=== PATIENT | female | born 1940 | race Caucasian/White ===

== ENCOUNTER → 2016-09-02 | Outpatient (CLI) | payer OTHER ==
[2016-09-02 16:56] LABS: BASOPHILS % (AUTO) 1.6 % (0-1); EOSINOPHILS # (AUTO) 0.61 10*3/UL; HEMATOCRIT 49.1 % (37.0-47.0); HEMOGLOBIN 16.8 g/dL (12.0-16.0); LYMPHOCYTES # (AUTO) 1.98 10*3/uL; MEAN CORPUSCULAR HEMOGLOBIN 28.8 PG (27-31); MEAN CORPUSCULAR HGB CONC 34.2 g/dL (33-37); MEAN CORPUSCULAR VOLUME 84.1 FL (81-99); MEAN PLATELET VOLUME 10.6 FL (7.4-12.2); MONOCYTES # (AUTO) 0.73 10*3/UL (0.3-0.8); NEUTROPHILS # (AUTO) 2.67 10*3/UL; NEUTROPHILS % (AUTO) 43.7 % (50-80); RED BLOOD COUNT 5.84 10^6/uL (4.20-5.40)
[2016-09-02 17:01] LABS: BUN/CREATININE RATIO 18.88 (6-20); CALCIUM 9.2 mg/dL (8.7-10.7); SERUM ALBUMIN 4.1 g/dL (3.5-4.8)
[2016-09-02 17:39] LABS: PLATELET MORPHOLOGY COMMENT NORMAL MORPHOLOGY (NORM); RBC MORPHOLOGY COMMENT NORMAL MORPHOLOGY (NORM); WBC MORPHOLOGY COMMENT NORMAL MORPHOLOGY (NORM)
== END ==
LOC: MOB LAB 15:54
PROVIDERS: ATTEND Nurse Practitioner
DX: J18.9 Pneumonia, unspecified organism (principal); R05 Cough; R06.02 Shortness of breath
CPT/HCPCS: 36415; 80053; 83880; 85025; 99214; G0463

== ENCOUNTER → 2016-09-23 | Outpatient (CLI) | payer OTHER | LOC: MMPC 11:11 | PROVIDERS: ATTEND Internal Medicine | DX: M81.0 Age-related osteoporosis without current pathological fracture (principal) | CPT/HCPCS: G0463; J0897 ==

== ENCOUNTER → 2016-12-29 | Outpatient (CLI) | payer OTHER | LOC: MMPC 11:11 | PROVIDERS: ATTEND Internal Medicine | DX: I62.9 Nontraumatic intracranial hemorrhage, unspecified (principal); E78.5 Hyperlipidemia, unspecified; I10 Essential (primary) hypertension | CPT/HCPCS: 99214; G0463 ==

== ENCOUNTER → 2017-01-17 | Outpatient (CLI) | payer OTHER ==
[2017-01-17 12:11] LABS: BUN/CREATININE RATIO 19.09 (6-20); CALCIUM 9.5 mg/dL (8.7-10.7); SERUM ALBUMIN 3.6 g/dL (3.5-4.8)
--- NOTE | 2017-01-17 15:53 | DI ---
History: Cerebral hemorrhage. History breast carcinoma Comparison: No previous MRI studies for comparison Findings: Right posterior temporal region there is a roughly 2.9 x 2.2 x 1.5 cm well delineated area of heterog eneous hyperintensity. There is no appreciable surrounding edema or mass effect. Post contrast images demonstrate no enhancement of this lesion indicating focal hemorrhage as opposed to neoplasm. There are mild atrophic and mild small vessel ischemic changes, consistent with the patient's age. Th ere is no midline shift. Paramesencephalic cisterns are patent. There are no extra-axial fluid collections. There are no destructive osseous changes. The mastoid cells are well aerated Postcontrast images demonstrate no [place] enhancing lesions Impression Heterogeneous nonenhancing lesion in the right posterior temporal region without associated edema or mass effect. The lack of postcontrast enhancement indicates hemorrhage as opposed to neoplasm. Follow up MRI in 3 months is recommended for reevaluation
--- NOTE | 2017-01-17 16:51 | DI ---
History: Congestive heart failure Comparison: No previous chest films available for comparison Findings: Cardiac silhouette is within normal in size. There is mild aortic atherosclerosis Pulmonary vasculature is normal There is no focal infiltrate. There is no pleural effusion. Impression No acute pulmonary disease.
== END ==
LOC: MOB LAB 10:33
PROVIDERS: ATTEND Internal Medicine
DX: I50.42 Chronic combined systolic (congestive) and diastolic (congestive) heart failure (principal); R60.0 Localized edema; I25.10 Atherosclerotic heart disease of native coronary artery without angina pectoris; I61.9 Nontraumatic intracerebral hemorrhage, unspecified; M81.0 Age-related osteoporosis without current pathological fracture; Z95.5 Presence of coronary angioplasty implant and graft; Z86.79 Personal history of other diseases of the circulatory system
CPT/HCPCS: 36415; 70553; 71020; 80053; 83880

== ENCOUNTER 2017-02-01 16:43 | Inpatient (IN) ==
[2017-02-01] MEDS ORDERED: NORMAL SALINE 10 ML SYRINGE FLUSH IVP PRN (16:59)
[2017-02-01] MEDS ORDERED: FUROSEMIDE 10 MG/1 ML - 2 ML VIAL IV ONE (16:59)
[2017-02-01] MEDS ORDERED: LIDOCAINE W/ SODIUM BICARB 0.5 ML SYR SUBD PRN (16:59)
[2017-02-01] MEDS ORDERED: ACETAMINOPHEN 325 MG TABLET PO PRN (16:59)
--- NOTE | 2017-02-01 17:23 | EKG ---
[address] [address] Measurements Intervals [place] Rate: 86 P: 37 [place]: 222 QRS: -15 QRSD: 154 T: 129 QT: 408 QTc: 451 Interpretive Statements SINUS RHYTHM WITH FIRST DEGREE AV BLOCK LEFT BUNDLE BRANCH BLOCK [120+ ms QRS DURATION, 80+ ms Q/S IN V1/V2, 85+ ms R IN I/aVL/V5/V6] No previous ECG available for comparison Electronically Signed On 02-02-17 08:32:47 MDT by Simone Posdaa MD [email or web address]
[2017-02-01] MEDS ORDERED: HYDROXYZINE HCL PO PRN (17:34)
[2017-02-01 20:10] LABS: Hemoglobin [HGB] 16.3 g/dL (12.0-16.0); MEAN CORPUSCULAR HEMOGLOBIN 29.5 PG (27-31); MEAN CORPUSCULAR HGB CONC 34.7 g/dL (33-37); MEAN CORPUSCULAR VOLUME 85.1 FL (81-99); MEAN PLATELET VOLUME 10.3 FL (7.4-12.2); MONOCYTES % (AUTO) 12.6 % (5-15); NEUTROPHILS % (AUTO) 46.8 % (50-80); RED BLOOD COUNT 5.52 10^6/uL (4.20-5.40)
[2017-02-01 20:11] LABS: BASOPHILS # (AUTO) 0.09 10*3/UL; BASOPHILS % (AUTO) 1.8 % (0-1); EOSINOPHILS # (AUTO) 0.08 10*3/UL; EOSINOPHILS % (AUTO) 1.6 % (0-8); LYMPHOCYTES # (AUTO) 1.88 10*3/uL; MONOCYTES # (AUTO) 0.64 10*3/UL (0.3-0.8); NEUTROPHILS # (AUTO) 2.37 10*3/UL; PLATELET MORPHOLOGY COMMENT NORMAL MORPHOLOGY (NORM); RBC MORPHOLOGY COMMENT NORMAL MORPHOLOGY (NORM); WBC MORPHOLOGY COMMENT NORMAL MORPHOLOGY (NORM)
[2017-02-01 20:12] LABS: BLOOD UREA NITROGEN 21 mg/dL (7-22); BUN/CREATININE RATIO 19.09 (6-20)
[2017-02-01 20:13] LABS: SERUM ALBUMIN 3.9 g/dL (3.5-4.8)
[2017-02-01] MEDS ORDERED: NORMAL SALINE 10 ML SYRINGE FLUSH IV PRN (20:32)
[2017-02-01] MEDS ORDERED: Lidocaine 1% 10 MG/ML - 20 ML VIAL SUBCUT PRN (20:32)
[2017-02-01] MEDS ORDERED: HEPARIN 500 UNIT/5 ML SYRINGE FOR CENTRAL LINE IVP PRN (20:32)
[2017-02-01] MEDS ORDERED: LIDOCAINE 2% 20 MG/ML - 20 ML VIAL SUBCUT PRN (20:32)
[2017-02-01] MEDS ORDERED: POTASSIUM CHLORIDE 20 MEQ TAB PO SCH (21:00)
[2017-02-01] MEDS: Rosuvastatin Tab 20 MG TAB PO SCH (21:27)
[2017-02-01] MEDS: LOSARTAN 50 MG TABLET PO SCH (21:27)
[2017-02-01] MEDS: Metoprolol TARTRATE Tab 25 MG TAB PO SCH (21:27)
--- NOTE | 2017-02-01 21:35 | PDOC ---
History and Physical - History of Present Illness Date and Time of Service: 02/01/2017, 2034 Chief Complaint: Weakness History of Present Illness: This is a very pleasant 76-year-old that has had a rough course as of late including an intracranial hemorrhage related to Xarelto for history of DVT, chronic left ankle pain after an ankle fracture and repair, hypertension, and congestive heart failure, who presented to her primary care provider, Dr. Trotter, today, with a complaint of feeling weaker. She also has gained weight. The patient's problems really of been persistent and worsening since her head bleed and about mid December of this year. Her and she states that she's been feeling short of breath for the last couple of months. He states that she's been getting weaker the last couple of months. Patient's not had symptoms like this before but has noticed that she's had increased leg swelling and edema, and despite increases in Lasix the patient was not able to tolerate the subsequent increased doses of potassium as well. It is not clear if she was truly compliant with that Lasix therapy, but she again presented to the clinic with worsening weakness and shortness of breath. She denies chest pain, fevers, but complains of chills. Nothing done to this point has made the patient feel better, she's not really clear on what's making her feel worse in terms of exacerbating factors. I'm not clear as to whether she's had any stress testing done in the past and she has never had any coronary artery disease problems. We have had trouble getting initial laboratory data here, and were very alondra to obtain IV access, so we may have to wait until tomorrow when we can get a PICC line to assess further with labs. Initial EKG showed an AV block with left bundle branch block which appears to be chronic. Past Medical History Medical History: 1. Coronary artery disease stent placement in 2013. 2. GERD. 3. Hypertension. 4. Colonic adenoma. 5. Hypothyroidism. 6. Left- sided breast cancer. 7. Postoperative DVT, had been on Xarelto, but stopped after bleed. 8. Recent bleed in brain presumably related to Xarelto therapy. 9. Congestive heart failure, recently diagnosed. 10. 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 Cholecystectomy. 2. Colonoscopy. 3. Left breast surgery. 4. Partial hysterectomy according to the patient. 5. Coronary stent 2. 6. Left ankle surgery after fracture Pertinent Family History: Significant for breast cancer. Past Social History: Patient does not smoke or drink. for over 60 years , has 4 children. Retired. Lives in [place], [place]. Tobacco Use: Never Smoker Substance Use Type: None Alcohol Use: None Medication / Allergies Home Medications: Home Medications Medication Instructions Recorded Confirmed Type Loratadine [Claritin Tab] 1 tab PO DAILY tab 05/16/14 02/24/16 History Calcium Carbonate [Calcium] 2 tab PO QD #60 tab 05/27/15 02/24/16 History Vit D3/Folic Acid/B2/B6/B12 1 each PO QD #30 tab 05/27/15 02/24/16 Clinic [Folgard Tablet] Betamethasone/Propylene Glyc 15 gm TOPICAL BID PRN #1 tube 08/07/15 02/24/16 Clinic [Diprolene Af 0.05% Cream] Denosumab [Prolia] 1 ml SUBCUT every 6 months #0 ml 08/19/15 02/24/16 Clinic Hydroxyzine HCl 0.5 - 1 tab PO QID PRN #30 tab 12/18/15 02/24/16 Clinic Levothyroxine Sodium [Synthroid] 1 tab PO DAILY #90 tab 08/12/16 02/01/17 Clinic Metoprolol Tartrate 1 tab PO BID #180 tab 08/12/16 Clinic Tramadol HCl 1 - 2 tab PO Q4H PRN #100 tab 08/12/16 Clinic Pantoprazole Sodium [Protonix] 1 tab PO DAILY #90 tab 11/02/16 Clinic Losartan Potassium 1 tab PO BID #180 tab 12/29/16 Clinic Rosuvastatin Calcium 1 tab PO QPM #30 tab 12/29/16 Clinic Ondansetron [Ondansetron Odt] 1 tab PO QID PRN #20 tab 01/13/17 Clinic Zolpidem Tartrate 1 tab PO QHS PRN #30 tab 01/13/17 Clinic Furosemide 1 tab PO BID #60 tab 01/17/17 Clinic Potassium Chloride [Klor-Con M20] 1 tab PO BID #60 tab 01/17/17 Clinic Allergies/Adverse Reactions: Allergies Allergy/AdvReac Type Severity Reaction Status Date / Time adhesive Allergy blisters Verified 02/01/17 18:27 ciprofloxacin Allergy ITCHING Verified 02/01/17 18:27 Latex, Natural Rubber Allergy NOT Verified 02/01/17 18:27 APPLICABLE Penicillins Allergy nausea, Verified 02/01/17 18:27 vomiting, rash lubiprostone [From Amitiza] AdvReac Severe confusion Verified 02/01/17 18:27 Review of Systems - Review of Systems All Systems: Reviewed & No Additional Complaints Except as Stated (I did a 12 point review systems and it was negative other than that discussed with the history of present illness and that noted below.) - Constitutional Constitutional: REPORTS: Fever/Chills (Has had chills, no fevers), Weakness ( Worsening over the past 2 months) - Respiratory Respiratory: DENIES: Dyspnea At Rest, Dyspnea with Exertion - Cardiovascular Cardiovascular: DENIES: Negative System Review - Gastrointestinal Gastrointestinal / Abdominal: DENIES: Negative System Review - Genitourinary Genitourinary: REPORTS: Other (Had recent urinary tract infection that was treated, and feels that she's had worsening odor to her urine, and it's been much more cloudy. She is worried she could have a recurrent urinary tract infection.) - Musculoskeletal Musculoskeletal: REPORTS: Other (Left ankle pain, chronic since fracture.) - Neurological Neurologic: REPORTS: Headache (Has chronic migraines since age 15, and notably had migraine headache 4 days prior to her bleed in her brain per her history.) Exam - Vitals Vital Signs: Vital Signs Temperature 98.2 F Temperature Source Temporal Artery Scan Pulse Rate [Pulse Oximeter] 107 Respiratory Rate 18 Blood Pressure [Left Arm] 124/67 Pulse Ox 95 Oxygen Delivery Method Room Air Height 5 ft 2 in Weight 212 lb 12.8 oz - General General Appearance: POSITIVE: No Acute Distress, Cooperative, Obese - Head Head Exam: POSITIVE: Normal Inspection, Normocephalic, Atraumatic - Eye Eye Exam: POSITIVE: No Scleral Icterus - ENT ENT Exam: POSITIVE: Mucous Membranes Moist - Neck Neck Exam: POSITIVE: Normal Inspection, No Tenderness, No Thyromegaly - Respiratory Respiratory Exam: POSITIVE: Clear to Auscultation - Bilaterally, Breathing Non Labored, Normal to Percussion and Palpation - Cardiovascular Cardiovascular Exam: POSITIVE: RRR, No Murmur, No Clicks, No Gallops, No Rubs, No JVD - GI/Abdominal GI/Abdominal Exam: POSITIVE: Normal Bowel Sounds, Non Tender, Non Distended, Soft - Rectal Rectal Exam: POSITIVE: Deferred - External Exam: POSITIVE: Deferred Exam: POSITIVE: Deferred - Extremities Extremities Exam: POSITIVE: No Clubbing Present, No Edema Present, No Cyanosis Present Additional Extremities Exam Details: Scarring on left ankle bilaterally from surgery. There may be trace edema, but it is certainly not pitting edema in the lower extremities at this point. - Back Back Exam: POSITIVE: Normal Inspection, No CVA Tenderness - Neurological Neurological Exam: POSITIVE: Alert, Oriented x 3 (The patient admits to some word finding problems at times, but overall no she is in the hospital, no she is here because of weakness, and appears to be oriented to time.), No Facial Droop, Speech Intact / Clear, Moves All Extremities Equally - Psychiatric Psychiatric Exam: POSITIVE: Normal Affect, Normal Mood - Integumentary Integumentary Exam: POSITIVE: Normal Color, Warm, Dry, Intact - Central Line Examination Central Line Present on Admission: No Results - Labs Labs - Last 24 Hours: I have ordered a CMP, CBC with differential, a brain natruretic peptide, BMP, and they are all pending at this time. - EKG Data -: EKG Interpreted by Me EKG Shows Normal: Sinus Rhythm - EKG Data EKG Interpretation: Other (First-degree AV block with left bundle branch block, I think the left bundle branch block is chronic) Assessment and Plan - Patient Problems (1) Congestive heart failure Current Visit: Yes Status: Acute Qualifiers: Congestive heart failure type: unspecified congestive heart failure type Congestive heart failure chronicity: acute Qualified Description: Acute congestive heart failure, unspecified congestive heart failure type Qualifier Code(s): (I50.9) Heart failure, unspecified (2) Weakness Current Visit: Yes Status: Acute (3) Coronary artery disease Current Visit: Yes Status: Chronic Qualifiers: Coronary Disease-Associated Artery/Lesion type: [place] coronary artery [place] vs. transplanted heart: [place] heart Associated angina: without angina pectoris Qualifier Code(s): (I25.10) Atherosclerotic heart disease of [place] coronary artery without angina pectoris (4) History of DVT (deep vein thrombosis) Current Visit: Yes Status: Chronic (5) History of breast cancer Current Visit: Yes Status: Resolved (6) Hypercholesterolemia Current Visit: Yes Status: Chronic (7) Hypertension Current Visit: Yes Status: Chronic Qualifiers: Hypertension type: essential hypertension Qualifier Code(s): (I10) Essential (primary) hypertension (8) Hypothyroidism Current Visit: Yes Status: Chronic Qualifiers: Hypothyroidism type: acquired Qualified Description: Acquired hypothyroidism Qualifier Code(s): (E03.9) Hypothyroidism, unspecified (9) History of cerebral hemorrhage Current Visit: Yes Status: Chronic - Assessment / Plan Additional Assessment/Plan Details: Admit the patient. Try to get the labs as we can, but may need PICC line first for better vascular access as the patient is a very hard IV stick. She apparently has had central lines and [place], [place], presumably for the same problem. Get records on brain bleed from [facility]. I did review the MRI scan recently done here in January, and it showed that there was a bleed that likely was resolving, but no evidence of mass or cancer. Start diuresis, but monitor electrolytes as well. Get echocardiogram. PT and OT. Get an x-ray of the left ankle, read through orthopedic progress notes in 2015 and the patient had a plan of having an MRI scan of the ankle but that was not done that I can tell and there was never any follow-up thereafter. I wonder about hardware pain. Overall this could be congestive heart failure but could certainly be pulmonary hypertension or some other issue causing some of the patient's fatigue and shortness of breath, notably however the patient does not markedly short of breath or dyspneic, fatigue and weakness seemed to be her main complaints. We' ll continue to evaluate for etiologies that could explain this presentation. Patient is full code. I did discuss CODE STATUS with the patient and her . Patient and her agree with the plan. Addendum entered and electronically signed by ABA PRECIADO 02/01/17 20:50: Patient is very hard of hearing but is resistant to using her hearing aids.
[2017-02-01] MEDS: Potassium Chloride Tab 10 MEQ TAB PO SCH (22:48)
[2017-02-01] MEDS: Zolpidem Tab 5 MG TAB PO PRN (22:51)
[2017-02-01] MEDS: traMADol 50 MG TABLET PO PRN (22:51)
[2017-02-02 04:53] LABS: BASOPHILS # (AUTO) 0.03 10*3/UL; BASOPHILS % (AUTO) 0.6 % (0-1); EOSINOPHILS # (AUTO) 0.09 10*3/UL; EOSINOPHILS % (AUTO) 1.8 % (0-8); Hematocrit [HCT] 45.5 % (37.0-47.0); Hemoglobin [HGB] 15.7 g/dL (12.0-16.0); MEAN CORPUSCULAR HEMOGLOBIN 29.4 PG (27-31); MEAN CORPUSCULAR HGB CONC 34.5 g/dL (33-37); MEAN CORPUSCULAR VOLUME 85.2 FL (81-99); MEAN PLATELET VOLUME 10.6 FL (7.4-12.2); MONOCYTES # (AUTO) 0.61 10*3/UL (0.3-0.8); MONOCYTES % (AUTO) 12.1 % (5-15); NEUTROPHILS # (AUTO) 2.49 10*3/UL; NEUTROPHILS % (AUTO) 49.5 % (50-80); RED BLOOD COUNT 5.34 10^6/uL (4.20-5.40)
[2017-02-02 05:00] LABS: PLATELET MORPHOLOGY COMMENT NORMAL MORPHOLOGY (NORM); RBC MORPHOLOGY COMMENT NORMAL MORPHOLOGY (NORM); WBC MORPHOLOGY COMMENT NORMAL MORPHOLOGY (NORM)
[2017-02-02 05:03] LABS: SERUM ALBUMIN 3.5 g/dL (3.5-4.8)
[2017-02-02] MEDS: LEVOTHYROXINE 50 MCG TABLET PO SCH (05:08)
[2017-02-02] MEDS ORDERED: Potassium Chloride Tab 10 MEQ TAB PO SCH ×2 (07:00)
[2017-02-02] MEDS: Metoprolol TARTRATE Tab 25 MG TAB PO SCH ×2 (08:51→20:29)
[2017-02-02] MEDS: ENOXAPARIN SODIUM 30 MG/0.3 ML SYRINGE SUBCUT SCH (08:51)
[2017-02-02] MEDS: CALCIUM CARBONATE 500 MG (TUMS) CHEWABLE TABLET PO SCH (08:51)
[2017-02-02] MEDS: LOSARTAN 50 MG TABLET PO SCH ×2 (08:51→20:30)
[2017-02-02] MEDS: PANTOPRAZOLE 40 MG TABLET PO SCH (08:51)
[2017-02-02] MEDS: Potassium Chloride Tab 10 MEQ TAB PO SCH ×2 (08:56→18:05)
[2017-02-02] MEDS ORDERED: ENOXAPARIN SODIUM 30 MG/0.3 ML SYRINGE SUBCUT SCH (09:00)
--- NOTE | 2017-02-02 10:03 | DI ---
LEFT ANKLE, 02/02/2017 7:00 AM: Clinical History: Left ankle pain. Previous Exam: 10/08/2014. 3 views are submitted. The patient apparently is wearing a sock and the elastic band over the ankle r egion is quite "tight". The patient is status post ORIF of fractures of the medial malleolus and the distal fibula. Both fracture sites have healed with anatomic alignment and position. There is an oste ochondral defect on the medial aspect of the dome of the talus. Readin. Status post ORIF of fractures of the medial malleolus and the distal fibula and both fractures gallagher ve healed. 2. There is an osteochondral defect on the medial aspect of the dome of the talus. 3. The patient's sock is quite tight in the region of the ankle and may be functioning as a tourniqu et.
[2017-02-02] MEDS ORDERED: FUROSEMIDE 10 MG/1 ML - 10 ML IVP ONE (11:21)
[2017-02-02] MEDS ORDERED: POTASSIUM CHLORIDE 20 MEQ TAB PO ONE (11:22)
[2017-02-02] MEDS: traMADol 50 MG TABLET PO PRN ×3 (14:20→22:20)
[2017-02-02] MEDS ORDERED: Potassium Chloride Tab 10 MEQ TAB PO ONE (14:30)
--- NOTE | 2017-02-02 14:37 | DI ---
INSERTION OF PICC LINE, 02/02/2017 8:00 AM: Clinical History: CHF. The patient has no peripheral IV access. Technique: A "time out" session was performed to verify the patient's name and date of prior to obtaining informed signed consent prior for this procedure. The left arm was prepped with ChloraPrep with Tint. Venipuncture was achieved under sterile conditions as already described in the ultrasound report. A 4 [place] double lumen Bard Power Picc Solo PICC catheter was inserted for a distance of th e length of the catheter. The guidewire could easily be advanced to its full length. Approximately 1 mL aliquots of 1% lidocaine was injected multiple times in order to relieve potential venospasm. A to elaina of 5 mL of 1% lidocaine was injected without ability to advance a catheter. Injection was then pe rformed with Isovue 300. The total volume injected was 8 mL. These images show that there is a 5 CM l ength of spasm beginning at the tip of the introducer catheter. Then there is an additional 5 CM wher e the vein is dilated followed by a second length of spasm. This vein was in the location of the brac hial vein but was distant from the brachial artery. This probably is a collateral channel. The final film with contrast shows that it is leading up to the subclavian vein and is not part of the axillary vein. Further attempts at advancing the catheter were unsuccessful. It was proposed to the patient t hat we attempt the procedure on the opposite arm but she declined because she complained of extensive pain from this PICC line procedure. Supervisor Boat Outfitting: Viet Funk MD Bulk Plant Supervisor: None. Complications/Medications: None. Reading: Unsuccessful introduction of a PICC line catheter probably secondary to a combination of venous spasm and a small caliber vein. Prior to the procedure, the estimated diameter of this vein without dilata tion was between 3-4 mm. The patient declined an attempt at cannulating a vein in the right arm.
--- NOTE | 2017-02-02 17:01 | DI ---
ULTRASOUND GUIDED VENOUS ACCESS, 02/02/2017 8:00 AM Clinical History: CHF. The patient has poor peripheral IV access. Previous Exam: None at this facility. 2D ultrasound was used to identify the left upper arm vein in proximity to the brachial vein for veno us access to place a PICC line. The puncture site was prepped with ChloraPrep with Tint and draped in the usual sterile fashion. This vein was successfully cannulated using realtime ultrasound guidance. The introducer sheath was advanced and positioned without difficulty. The guidewire could be introdu misti easily, but a 4 [place] PICC catheter could not be advanced more than 1-2 cm beyond the length of the introducer sheath. One mL aliquots of 1% lidocaine were injected through the introducer and order ed to relieve any potential venospasm. Although the guidewire could easily be introduced and withdraw n without any difficulty, the catheter could not be withdrawn. Isovue-300 was then injected through t he introducer sheath 3 different times with a total volume of 5 mL of contrast. These films show spas m immediately distal to the catheter tip and further up the arm. The vessel that was cannulated does not correspond to the brachial or basilic vein and probably represents a collateral vein that has dil ated and eventually will drain into the subclavian vein. The cannulated vein at the beginning of the procedure measured about 3-4 mm in diameter. Reading: Successful and uncomplicated cannulation of a collateral vein adjacent to the location of the brachia l vein. However, due to profound venospasm, the 4 [place] catheter could not be advanced. The patient declined to have a second attempt performed via the right arm.
--- NOTE | 2017-02-02 18:10 | PDOC(PROG) ---
Date and Time of Service: 02/02/2017, 1810 Interval History: No chest pain and no shortness breath. Still feels weak. Initially felt energetic during the morning, but has felt weaker through the day. Echocardiogram is done and is pending. No nausea or vomiting. She definitely feels like she's got some fluid weight off. Objective : Data - Labs CBC and BMP: 02/02/17 04:38 02/02/17 04:38 Labs - Last 24 Hours: Laboratory Results 02/01/17 02/02/17 Range/Units 19:08 04:38 WBC 5.06 5.03 (4.8-10.8) 10^3/uL RBC 5.52 H 5.34 (4.20-5.40) 10^6/uL Hgb 16.3 H 15.7 (12.0-16.0) g/dL Hct 47.0 45.5 (37.0-47.0) % MCV 85.1 85.2 (81-99) FL MCH 29.5 29.4 (27-31) PG MCHC 34.7 34.5 (33-37) g/dL RDW Std Deviation 43.8 43.9 (39-50) fL RDW Coeff of Maureen 14.2 14.2 (11.5-14.5) % Plt Count 231 213 (140-350) 10*3/uL MPV 10.3 10.6 (7.4-12.2) FL Immature Gran % (Auto) 0 0.2 (0-5) % Neut % (Auto) 46.8 L 49.5 L (50-80) % Lymph % (Auto) 37.2 35.8 (10-50) % [place] % (Auto) 12.6 12.1 (5-15) % Eos % (Auto) 1.6 1.8 (0-8) % Baso % (Auto) 1.8 H 0.6 (0-1) % Immature Gran # (Auto) 0 0.01 10*3/UL Neut # (Auto) 2.37 2.49 10*3/UL Lymph # (Auto) 1.88 1.80 10*3/uL [place] # (Auto) 0.64 0.61 (0.3-0.8) 10*3/UL Eos # (Auto) 0.08 0.09 10*3/UL Baso # (Auto) 0.09 0.03 10*3/UL WBC Morphology Comment Normal morphology Normal morphology (NORM) Plt Morphology Comment Normal morphology Normal morphology (NORM) RBC Morph Comment Normal morphology Normal morphology (NORM) PT 10.3 (9.7-11.4) secs INR 0.97 (0.00-5.90) N/A Sodium 139 139 (135-145) meq/L Potassium 3.7 L 3.6 L (3.8-5.2) meq/L Chloride 104 104 (98-112) meq/L Carbon Dioxide 24 23 (23-33) meq/L Anion Gap 11 12 (5-20) BUN 21 25 H (7-22) mg/dL Creatinine 1.1 1.0 (0.50-1.20) mg/dL Estimated GFR Metal Inspector BUN/Creatinine Ratio 19.09 25.00 H (6-20) Glucose 101 112 H (78-110) mg/dL Calculated Osmolality 290.0 292.0 (267-292) mOsm/kg Calcium 10.1 9.9 (8.7-10.7) mg/dL Magnesium 2.0 (1.6-2.4) mg/dL Total Bilirubin 0.9 1.0 (0.3-1.2) mg/dL AST 37 36 (8-39) IU/L ALT 55 H 52 (9-52) IU/L Alkaline Phosphatase 81 74 (38-126) IU/L Troponin I 0.013 (< 0.040) ng/mL NT-Pro-B Natriuret Pep 378 (0-450) PG/ML Total Protein 6.6 5.7 L (6.1-8.0) g/dL Albumin 3.9 3.5 (3.5-4.8) g/dL Globulin 2.7 2.2 L (2.50-4.10) g/dL Albumin/Globulin Ratio 1.40 1.50 (1.3-2.0) mg/g Objective : Exam - General General Appearance: No Acute Distress, Cooperative, Obese Additional General Exam Details: Vital Signs - Last Taken Temperature 97.2 F 02/02/17 17:00 Pulse Rate 107 H 02/02/17 17:00 Respiratory Rate 18 02/02/17 17:00 Blood Pressure 110/78 02/02/17 17:00 Pulse Ox 91 02/02/17 17:00 - Eye Eye Exam: No Scleral Icterus - ENT ENT Exam: Mucous Membranes Moist - Respiratory Respiratory Exam: Clear to Auscultation - Bilaterally, Breathing Non Labored - Cardiovascular Cardiovascular Exam: RRR, No Murmur, No Clicks, No Gallops, No Rubs, No JVD - GI/Abdominal GI/Abdominal Exam: Normal Bowel Sounds, Non Tender, Non Distended, Soft - Extremities Extremities Exam: No Clubbing Present, No Cyanosis Present, Pedal Edema Additional Extremities Exam Details: Edema is a little improved. - Neurological Neurological Exam: Alert, No Facial Droop, Speech Intact / Clear, Moves All Extremities Equally Additional Neurological Exam Details: Oriented to person, no she is in the hospital, but definitely has some intermittent memory lapses Assessment and Plan - Patient Problems (1) Congestive heart failure Current Visit: Yes Status: Acute Qualifiers: Congestive heart failure type: unspecified congestive heart failure type Congestive heart failure chronicity: acute Qualified Description: Acute congestive heart failure, unspecified congestive heart failure type Qualifier Code(s): (I50.9) Heart failure, unspecified (2) Weakness Current Visit: Yes Status: Acute (3) Coronary artery disease Current Visit: Yes Status: Chronic Qualifiers: Coronary Disease-Associated Artery/Lesion type: [place] coronary artery [place] vs. transplanted heart: [place] heart Associated angina: without angina pectoris Qualifier Code(s): (I25.10) Atherosclerotic heart disease of [place] coronary artery without angina pectoris (4) History of DVT (deep vein thrombosis) Current Visit: Yes Status: Chronic (5) Hypercholesterolemia Current Visit: Yes Status: Chronic (6) Hypertension Current Visit: Yes Status: Chronic Qualifiers: Hypertension type: essential hypertension Qualifier Code(s): (I10) Essential (primary) hypertension (7) Hypothyroidism Current Visit: Yes Status: Chronic Qualifiers: Hypothyroidism type: acquired Qualified Description: Acquired hypothyroidism Qualifier Code(s): (E03.9) Hypothyroidism, unspecified (8) History of cerebral hemorrhage Current Visit: Yes Status: Chronic - Assessment / Plan Additional Assessment/Plan Details: We'll give another dose of Lasix 80 mg IV and see how the patient diuresis through the day. Await echocardiogram results. If positive for left systolic heart failure, the patient might benefit from a stress test as well. I think a lot of the fatigue the patient is experiencing is still recovery from her recent hypertensive intracranial hemorrhage. We are in a difficult situation in terms of anticoagulants as the patient has had multiple DVTs, albeit all postoperative that I can tell from review of her available medical record. We'll resume aspirin at the end of January or mid-February. PT and OT
[2017-02-02] MEDS: Rosuvastatin Tab 20 MG TAB PO SCH (20:30)
[2017-02-02] MEDS: Zolpidem Tab 5 MG TAB PO PRN ×2 (20:30→22:20)
[2017-02-02] MEDS: ALPHAGAN P LEFT EYE SCH (20:32)
[2017-02-02] MEDS ORDERED: Sodium Chloride 0.9% 500 ML ONE (22:17)
[2017-02-02] MEDS: Sodium Chloride 0.9% 500 ML PRIMARY IV SCH (22:19)
[2017-02-03] MEDS: Sodium Chloride 0.9% 500 ML PRIMARY IV SCH (00:55)
[2017-02-03] MEDS: LEVOTHYROXINE 50 MCG TABLET PO SCH (04:32)
[2017-02-03] MEDS: Potassium Chloride Tab 10 MEQ TAB PO SCH ×2 (08:59→16:35)
[2017-02-03] MEDS: ALPHAGAN P LEFT EYE SCH ×2 (08:59→21:49)
[2017-02-03] MEDS: ENOXAPARIN SODIUM 30 MG/0.3 ML SYRINGE SUBCUT SCH ×2 (08:59→11:26)
[2017-02-03] MEDS: Metoprolol TARTRATE Tab 25 MG TAB PO SCH ×2 (09:00→20:09)
[2017-02-03] MEDS: PANTOPRAZOLE 40 MG TABLET PO SCH (09:00)
[2017-02-03] MEDS: LOSARTAN 50 MG TABLET PO SCH ×2 (09:00→20:09)
[2017-02-03] MEDS: CALCIUM CARBONATE 500 MG (TUMS) CHEWABLE TABLET PO SCH (09:00)
[2017-02-03] MEDS ORDERED: SUMAtriptan Tab 25 MG TAB PO ONE (11:33)
--- NOTE | 2017-02-03 16:43 | PDOC(PROG) ---
Date and Time of Service: 02/03/2017, 1638 Interval History: no chest pain, not short of breath. energy is improving, but has headache develop every bowel movement. no nausea or vomiting. interested in doing swing bed. states she is more forgetful and does not have a lot of help at home. Objective : Data - Labs CBC and BMP: 02/02/17 04:38 02/02/17 04:38 - Imaging Ultrasound Status: Report Reviewed by Me (ECHO, I got the report from cardiology today. The patient has a depressed EF, 45%. anterior hypokinesis.) Objective : Exam - General General Appearance: No Acute Distress, Cooperative, Obese Additional General Exam Details: Vital Signs - Last Taken Temperature 97.8 F 02/03/17 12:59 Pulse Rate 77 02/03/17 15:00 Respiratory Rate 22 02/03/17 12:59 Blood Pressure 127/77 02/03/17 12:59 Pulse Ox 96 02/03/17 12:59 - Eye Eye Exam: No Scleral Icterus - ENT ENT Exam: Mucous Membranes Moist - Respiratory Respiratory Exam: Clear to Auscultation - Bilaterally, Breathing Non Labored - Cardiovascular Cardiovascular Exam: RRR, No Murmur, No Clicks, No Gallops, No Rubs, No JVD - GI/Abdominal GI/Abdominal Exam: Normal Bowel Sounds, Non Tender, Non Distended, Soft - Extremities Extremities Exam: No Clubbing Present, No Edema Present, No Cyanosis Present - Neurological Neurological Exam: Alert, Oriented x 3, No Facial Droop, Speech Intact / Clear, Moves All Extremities Equally Assessment and Plan - Patient Problems (1) Congestive heart failure Current Visit: Yes Status: Acute Qualifiers: Congestive heart failure type: systolic Congestive heart failure chronicity: acute on chronic Qualified Description: Acute on chronic systolic congestive heart failure Qualifier Code(s): (I50.23) Acute on chronic systolic (congestive) heart failure (2) Hypokinesis Current Visit: Yes Status: Acute (3) Weakness Current Visit: Yes Status: Acute (4) Coronary artery disease Current Visit: Yes Status: Chronic Qualifiers: Coronary Disease-Associated Artery/Lesion type: [place] coronary artery [place] vs. transplanted heart: [place] heart Associated angina: without angina pectoris Qualifier Code(s): (I25.10) Atherosclerotic heart disease of [place] coronary artery without angina pectoris (5) History of DVT (deep vein thrombosis) Current Visit: Yes Status: Chronic (6) Hypercholesterolemia Current Visit: Yes Status: Chronic (7) Hypertension Current Visit: Yes Status: Chronic Qualifiers: Hypertension type: essential hypertension Qualifier Code(s): (I10) Essential (primary) hypertension (8) Hypothyroidism Current Visit: Yes Status: Chronic Qualifiers: Hypothyroidism type: acquired Qualified Description: Acquired hypothyroidism Qualifier Code(s): (E03.9) Hypothyroidism, unspecified (9) History of cerebral hemorrhage Current Visit: Yes Status: Chronic - Assessment / Plan Additional Assessment/Plan Details: for CHF, acute exacerbation is resolving. on ARB. on beta tracee. lasix for diuresis change to PO lasix daily for PATEL, might be good to add a stool softener. may be getting some sort of valsalva or vasovagal type issue with bowel movements to develop headaches PT and OT would really benefit from the swing bed. She is agreeable to continuing PT and OT. I put in for swing bed evaluation
[2017-02-03] MEDS: Rosuvastatin Tab 20 MG TAB PO SCH (20:09)
[2017-02-03] MEDS: DOCUSATE 100 MG CAPSULE PO SCH (20:10)
[2017-02-03] MEDS: traMADol 50 MG TABLET PO PRN (21:49)
[2017-02-03] MEDS: Zolpidem Tab 5 MG TAB PO PRN (21:50)
[2017-02-04 15:20] LABS: BLOOD UREA NITROGEN 30 mg/dL (7-22); BUN/CREATININE RATIO 27.27 (6-20)
[2017-02-04] MEDS: FUROSEMIDE 40 MG TABLET PO SCH (16:03)
[2017-02-04] MEDS: DOCUSATE 100 MG CAPSULE PO SCH ×2 (16:04→21:15)
[2017-02-04] MEDS: LEVOTHYROXINE 50 MCG TABLET PO SCH (16:05)
[2017-02-04] MEDS: CALCIUM CARBONATE 500 MG (TUMS) CHEWABLE TABLET PO SCH (16:05)
[2017-02-04] MEDS: ALPHAGAN P LEFT EYE SCH ×2 (16:05→21:16)
[2017-02-04] MEDS: PANTOPRAZOLE 40 MG TABLET PO SCH (16:05)
[2017-02-04] MEDS: LOSARTAN 50 MG TABLET PO SCH ×2 (16:06→21:15)
[2017-02-04] MEDS: Potassium Chloride Tab 10 MEQ TAB PO SCH ×2 (16:06→16:58)
[2017-02-04] MEDS: Metoprolol TARTRATE Tab 25 MG TAB PO SCH ×2 (16:06→21:15)
--- NOTE | 2017-02-04 16:38 | PTI REPORT ---
Thank you for the referral of Katarina Small. She was seen on 02/03/17 for an inpatient evaluation secondary to weakness and migraines. SUBJECTIVE: The patient is a 76-year-old female who states that she went to have her vision checked on 02/01/2017 and was since admitted to the hospital. The patient states that approximately 3-4 weeks ago she was diagnosed with left intracranial bleeding and also does have a chronic history of migraines. The patient is complaining of a migraine at this time and states that when she gets her migraines her vision worsens. She states that she has poor vision to start with but with her migraines she starts to get "sparklys" and cannot very well distinguish what is in front of her. The patient states that she had been taking a medication for her migraines which has helped in the past, but she states Medicare no longer covers it so she has not been able to take that for a while. The patient states that she also feels like she has been getting weaker. She states that at her last follow up with Dr. Trotter she did talk about possibly getting some physical therapy in order to improve her general strength. The patient is also hard of hearing. The patient states that she lives in [place] with her . She states that she only has one step within her house. Otherwise, she does have a ramp into her house. The patient states that her does all of the cooking, cleaning, and laundry type activities as well as the driving. The patient states that she receives meals on wheels one time per day. The patient reports that she does not generally use an assistive device around her home or out in her yard unless she is feeling like she needs it if she has migraine symptoms or is feeling more weak then she may use a walker or her cane. She states that her walker is a front wheeled walker. Otherwise, sometimes when going out into the community she will use a wheelchair if she is having any symptoms. The patient states that she mainly stays around her house. She states that they do have a large yard and she does get outside and walk at least one time per day around their property on the sidewalk. The patient denies any recent falls and states that her last fall occurred in 2013 when she sustained a fracture to her left ankle and was hospitalized for a month. The patient's biggest concerns are her lower extremity weakness and also her migraines. After talking with the patient, she did state that most of the time lately she has been getting the severe migraine symptoms has been after she has been trying to have a bowel movement. The patient may be doing a Valsalva maneuver with her bowel movement that may be causing some of those migraine symptoms as well. PAST MEDICAL HISTORY: Past medical history can be found in the patient's medical record. OBJECTIVE FINDINGS: General observations: Upon PT arrival the patient was just finishing with toileting activities. The patient was able to ambulate from the bathroom over to the sink and performed standing with hand hold assistance x1 and contact guard assist x1 for safety in order to wash her hands. The patient was in acute distress of a migraine that she stated just started when she was having a bowel movement. She stated that she was having a difficult time seeing. She was assisted with contact guard assist x1 over to the edge of the bed. Bed mobility: The patient was able to independently transfer from seated to supine with head of bed raised. As the patient laid in bed she stated that her headache symptoms did improve and she was able to provide her subjective history while laying in bed. After the subjective history the patient stated that she was feeling better and was ready to participate in therapy as her headache had decreased. The patient was able to independently move from a supine to seated position. The patient demonstrated good seated edge of bed balance. Strength: Manual muscle testing was performed in the seated position. The patient demonstrates 3/5 bilateral lower extremity strength. Transfers: The patient was able to perform sit to stand transfer with stand by assist x1 for safety. We did adjust the standard walker to the patient's correct height in order to utilize that for walking as when she was walking with contact guard assist x1 from the bathroom to the bed earlier in our evaluation, she was fairly unsteady and is a high fall risk. Ambulation: The patient was able to ambulate 100 feet before requiring a seated rest break due to fatigue. After a three minute seated rest break the patient was able to ambulate with standard walker and contact guard assist x1 an additional 50 feet into her room where she transferred back into bed. ASSESSMENT: The patient has good rehab potential. Problem List: Decreased endurance Decreased activity tolerance Migraines/headaches limiting the patient's functional activities Generalized weakness Physical Therapy Goals: To be met by discharge from inpatient: Patient will be able to ambulate at least 200 feet with appropriate assistive device and no more than stand by assist x1 safely. Patient will be able to perform 10 sit to stand transfers safely and independently. Patient will be instructed in proper breathing techniques, possibly to help with the migraines that she experiences while having a bowel movement to see if this can't decrease the occurrence of migraines. Patient will be able to tolerate 45 minutes of physical therapy activities with rest breaks as needed. TREATMENT PLAN: Patient will be seen B.I.D during the week and one time per day over the weekend as an inpatient to address the above listed goals. INITIAL TREATMENT: Treatment today consisted of the initial evaluation followed by one unit of functional activity with the patient ambulating x100 feet and x50 feet with standard walker and contact guard assist x1 for safety. Following ambulation the patient transferred back into bed. The patient's bed alarm was set and call light was placed within reach. [facility] MEDICAL CENTERFermin
--- NOTE | 2017-02-04 16:43 | PT PM DAY ---
Diagnosis : Weakness/Headaches PM - Physical Therapy S: The patient reports she is very fatigued and irritated that she is not able to get much rest while in the hospital. O: Today's therapy consisted of the patient ambulating from her room with front wheeled walker, gait belt, and contact guard to stand by assist utilizing the elevator to get down to the first floor. She walked outside on even and uneven surfaces and over curbs. The patient then participated with occupational therapy while in the therapy clinic. She then performed therapeutic exercises and functional activities including sit to stands, box step ups on the #3 box, and standing single legged balance with bilateral hand hold on the walker. The patient required the wheelchair back up to her room due to fatigue. A: The patient required verbal cues for participation but in the end was willing. P: Continue seeing patient BID during the week and one time per day over the weekend for transfers, ambulation, and range of motion/strengthening exercises. SHAREE
--- NOTE | 2017-02-04 16:57 | OTI REPORT ---
Thank you for the referral of Katarina Small. She was seen on 02/03/17 for an occupational therapy inpatient evaluation. SUBJECTIVE: The patient is a 76-year-old female who is being seen today secondary to vision changes and headaches as well as multiple medical issues including CHF, weakness , CAD, history of DVT, history of breast cancer, cholesterol, hypertension, hypo -thyroidism, and history of cerebral hemorrhage. The patient reports that the cerebral hemorrhage happened approximately 3-4 weeks ago on the left side of her brain. She said that her vision has been a lot different since the brain bleed. She reports that she has been getting migraine headaches since the age of 15; however, throughout her report, she states she gets most of her migraine headaches while she is having a bowel movement. The patient reports she has had three surgeries on her left eye including removal of cataracts and glaucoma as well as two stints in her eye. She had a surgery on her right eye to remove a cataract; however, since that surgery her vision has been blurrier. The patient does live in [place] with her ; however, he is not home most of the day and she has to do most activities on her own. The patient's headaches do affect her vision. She reports her vision as being "floating" and "sparkly". The patient reports that she has had no falls since 2013. She was in the [facility] for approximately a month secondary to breaking her ankle. The patient does live in a home with one step that goes from the family room to the kitchen. Other than that, it is on one level. Her bathroom is set up with a shower chair in the tub/shower; however, there have been times when she has had difficulty getting out of her shower. She also has a handheld shower hose and a raised toilet seat with handles. Outside of the home, there is a concrete ramp that her had installed. The patinet states she usually stays in her house or yard. She has all of the adaptive equipment when needed including a front wheeled walker and a cane. The patient typically does not use dressing equipment to get dressed at home. She reports that her does the laundry, cooking, cleaning, grocery shopping, and she does not do any driving. The patient does receive meals on wheels throughout the week. She does feel that her strength has decreased recently. She states she is not as strong as she was prior to her cerebral hemorrhage. She also reports that her thinking abilities are off. She sometimes cannot find the word that she is trying to say and she just feels like she is processing things slower. PAST MEDICAL HISTORY: Past medical history can be found in the patient's medical record. OBJECTIVE FINDINGS: [] ASSESSMENT: [] Short-Term Goals: To be met by discharge from inpatient: Patient will be able to [] Patient will be able to [] Patient will be able to [] Patient will be able to [] Long-Term Goals: To be met following discharge from inpatient: Patient will be able to [] Patient will be able to [] TREATMENT PLAN: Patient will be seen B.I.D during the week and one time per day over the weekend as an inpatient to address the above goals and objectives.[] INITIAL TREATMENT: [] MTDD
--- NOTE | 2017-02-04 17:21 | PT.PROG ---
Progress Note Progress Note: S: Monalisa reports that she would like to have more activity and wanted to get up to go for a walk today. She is excited to have more independence and would like to be able to get up to go to the bathroom freely. Pat reported that she is experiencing leg pain and that her hamstring and calf muscles are cramping. Monalisa says that she experiences these symptoms regularly. Pat agreed to participate in therapy today. O: Pat ambulated 150ft with SBA x 1 and AD to therapy. Pat walked again outside 250ft x 2 with SBA x 1, but without AD. Instructed in ther ex: marching, LAQ and heel/toe raises, 2 x 10 reps each. Monalisa was returned to her room in wheelchair with chair alarm on and was left with OT. A: Monalisa tolerated therapy well today with minimal complaints of pain. Pat preferred not to use the AD when walking and demonstrated sufficient balance when walking without the AD. Pat c/o of pain in her R LE that impaired her ability to walk for long durations and distances. P: Continue POC as tolerated
[2017-02-04] MEDS: Rosuvastatin Tab 20 MG TAB PO SCH (21:16)
[2017-02-04] MEDS: traMADol 50 MG TABLET PO PRN (22:09)
[2017-02-04] MEDS: Zolpidem Tab 5 MG TAB PO PRN (22:12)
[2017-02-05 05:04] VITALS: RESP 20
[2017-02-05 06:02] LABS: BLOOD UREA NITROGEN 30 mg/dL (7-22); BUN/CREATININE RATIO 27.27 (6-20)
[2017-02-05] MEDS: LEVOTHYROXINE 50 MCG TABLET PO SCH (06:25)
[2017-02-05] MEDS ORDERED: PANTOPRAZOLE 40 MG TABLET PO SCH (07:00)
[2017-02-05] MEDS: FUROSEMIDE 40 MG TABLET PO SCH (07:56)
[2017-02-05] MEDS: Potassium Chloride Tab 10 MEQ TAB PO SCH (07:56)
[2017-02-05 08:05] VITALS: BP 123/74; TEMP 97.4
--- NOTE | 2017-02-05 08:12 | DCSUMMARY ---
Hospitalization Summary Admit Date: 01/31/17 Discharge Date: 02/05/17 Hospital Course: Discharge diagnoses 1. Congestive heart failure secondary to reduced ejection fraction 2. Coronary artery disease with previous stent 2014 3. Hypertension 4. GERD 5. Colonic adenoma 6. Hypothyroidism 7. History of breast cancer 8. History of postoperative DVT 9. Recent intracranial bleed presumed to be secondary to Xarelto 10. Chronic migraine headaches with visual scotoma and aura 11. History of left ankle surgery after fracture Hospital course This is a 76 years old the female with medical history significant for history of coronary artery disease with previous stent, hypertension, GERD , hypothyroidism, history of breast cancer, history of previous DVT, recent admission for intracranial bleeding to [facility] that was treated conservatively and discontinuation of her Xarelto. She presented the to her primary care physician Dr. Trotter with a complaint of feeling weaker and she gained weight. She did also report shortness of breath. Patient was sent directly and was admitted to the hospital for congestive heart failure. She was put on Lasix initially IV then switched to by mouth. Physical therapy with occupational therapy consults were obtained. Gradually she started to improve symptomatically however she remained weak and I saw her later on during hospital stay she was making improvement but she remained weak so we thought we can probably switch her to swing bed status to continue physical therapy. Overall she is making progress but is slow. Her status was changed to swing bed status to continue physical therapy. She did have an echocardiogram and per my discussion with Dr. Garcia ejection fraction was 45%. Dr. Sol did order stress test for her and when I came in she declined to have this stress test done. Laboratory Results 02/01/17 02/01/17 02/01/17 Range/Units 19:08 19:08 19:08 WBC 5.06 (4.8-10.8) 10^3/uL RBC 5.52 H (4.20-5.40) 10^6/uL Hgb 16.3 H (12.0-16.0) g/dL Hct 47.0 (37.0-47.0) % MCV 85.1 (81-99) FL MCH 29.5 (27-31) PG MCHC 34.7 (33-37) g/dL RDW Std Deviation 43.8 (39-50) fL RDW Coeff of Maureen 14.2 (11.5-14.5) % Plt Count 231 (140-350) 10*3/uL MPV 10.3 (7.4-12.2) FL Immature Gran % (Auto) 0 (0-5) % Neut % (Auto) 46.8 L (50-80) % Lymph % (Auto) 37.2 (10-50) % Nelson % (Auto) 12.6 (5-15) % Eos % (Auto) 1.6 (0-8) % Baso % (Auto) 1.8 H (0-1) % Immature Gran # (Auto) 0 10*3/UL Neut # (Auto) 2.37 10*3/UL Lymph # (Auto) 1.88 10*3/uL Nelson # (Auto) 0.64 (0.3-0.8) 10*3/UL Eos # (Auto) 0.08 10*3/UL Baso # (Auto) 0.09 10*3/UL WBC Morphology Comment Normal morphology (NORM) Plt Morphology Comment Normal morphology (NORM) RBC Morph Comment Normal morphology (NORM) PT (9.7-11.4) secs INR (0.00-5.90) N/A Sodium (135-145) meq/L Potassium (3.8-5.2) meq/L Chloride (98-112) meq/L Carbon Dioxide (23-33) meq/L Anion Gap (5-20) BUN (7-22) mg/dL Creatinine (0.50-1.20) mg/dL Estimated GFR BUN/Creatinine Ratio (6-20) Glucose (78-110) mg/dL Calculated Osmolality (267-292) mOsm/kg Calcium (8.7-10.7) mg/dL Magnesium 2.0 (1.6-2.4) mg/dL Total Bilirubin (0.3-1.2) mg/dL AST (8-39) IU/L ALT (9-52) IU/L Alkaline Phosphatase (38-126) IU/L Troponin I 0.013 (< 0.040) ng/mL NT-Pro-B Natriuret Pep (0-450) PG/ML Total Protein (6.1-8.0) g/dL Albumin (3.5-4.8) g/dL Globulin (2.50-4.10) g/dL Albumin/Globulin Ratio (1.3-2.0) mg/g 02/01/17 02/01/17 02/01/17 Range/Units 19:08 19:08 19:08 WBC (4.8-10.8) 10^3/uL RBC (4.20-5.40) 10^6/uL Hgb (12.0-16.0) g/dL Hct (37.0-47.0) % MCV (81-99) FL MCH (27-31) PG MCHC (33-37) g/dL RDW Std Deviation (39-50) fL RDW Coeff of Maureen (11.5-14.5) % Plt Count (140-350) 10*3/uL MPV (7.4-12.2) FL Immature Gran % (Auto) (0-5) % Neut % (Auto) (50-80) % Lymph % (Auto) (10-50) % Nelson % (Auto) (5-15) % Eos % (Auto) (0-8) % Baso % (Auto) (0-1) % Immature Gran # (Auto) 10*3/UL Neut # (Auto) 10*3/UL Lymph # (Auto) 10*3/uL Nelson # (Auto) (0.3-0.8) 10*3/UL Eos # (Auto) 10*3/UL Baso # (Auto) 10*3/UL WBC Morphology Comment (NORM) Plt Morphology Comment (NORM) RBC Morph Comment (NORM) PT 10.3 (9.7-11.4) secs INR 0.97 (0.00-5.90) N/A Sodium 139 (135-145) meq/L Potassium 3.7 L (3.8-5.2) meq/L Chloride 104 (98-112) meq/L Carbon Dioxide 24 (23-33) meq/L Anion Gap 11 (5-20) BUN 21 (7-22) mg/dL Creatinine 1.1 (0.50-1.20) mg/dL Estimated GFR Health Insurance Assessor BUN/Creatinine Ratio 19.09 (6-20) Glucose 101 (78-110) mg/dL Calculated Osmolality 290.0 (267-292) mOsm/kg Calcium 10.1 (8.7-10.7) mg/dL Magnesium (1.6-2.4) mg/dL Total Bilirubin 0.9 (0.3-1.2) mg/dL AST 37 (8-39) IU/L ALT 55 H (9-52) IU/L Alkaline Phosphatase 81 (38-126) IU/L Troponin I (< 0.040) ng/mL NT-Pro-B Natriuret Pep 378 (0-450) PG/ML Total Protein 6.6 (6.1-8.0) g/dL Albumin 3.9 (3.5-4.8) g/dL Globulin 2.7 (2.50-4.10) g/dL Albumin/Globulin Ratio 1.40 (1.3-2.0) mg/g 02/02/17 02/02/17 02/04/17 Range/Units 04:38 04:38 05:15 WBC 5.03 (4.8-10.8) 10^3/uL RBC 5.34 (4.20-5.40) 10^6/uL Hgb 15.7 (12.0-16.0) g/dL Hct 45.5 (37.0-47.0) % MCV 85.2 (81-99) FL MCH 29.4 (27-31) PG MCHC 34.5 (33-37) g/dL RDW Std Deviation 43.9 (39-50) fL RDW Coeff of Maureen 14.2 (11.5-14.5) % Plt Count 213 (140-350) 10*3/uL MPV 10.6 (7.4-12.2) FL Immature Gran % (Auto) 0.2 (0-5) % Neut % (Auto) 49.5 L (50-80) % Lymph % (Auto) 35.8 (10-50) % Nelson % (Auto) 12.1 (5-15) % Eos % (Auto) 1.8 (0-8) % Baso % (Auto) 0.6 (0-1) % Immature Gran # (Auto) 0.01 10*3/UL Neut # (Auto) 2.49 10*3/UL Lymph # (Auto) 1.80 10*3/uL Nelson # (Auto) 0.61 (0.3-0.8) 10*3/UL Eos # (Auto) 0.09 10*3/UL Baso # (Auto) 0.03 10*3/UL WBC Morphology Comment Normal morphology (NORM) Plt Morphology Comment Normal morphology (NORM) RBC Morph Comment Normal morphology (NORM) PT (9.7-11.4) secs INR (0.00-5.90) N/A Sodium 139 136 (135-145) meq/L Potassium 3.6 L 4.5 (3.8-5.2) meq/L Chloride 104 107 (98-112) meq/L Carbon Dioxide 23 24 (23-33) meq/L Anion Gap 12 5 (5-20) BUN 25 H 30 H (7-22) mg/dL Creatinine 1.0 1.1 (0.50-1.20) mg/dL Estimated GFR Health Insurance Assessor BUN/Creatinine Ratio 25.00 H 27.27 H (6-20) Glucose 112 H 115 H (78-110) mg/dL Calculated Osmolality 292.0 10.0 L (267-292) mOsm/kg Calcium 9.9 10.0 (8.7-10.7) mg/dL Magnesium (1.6-2.4) mg/dL Total Bilirubin 1.0 (0.3-1.2) mg/dL AST 36 (8-39) IU/L ALT 52 (9-52) IU/L Alkaline Phosphatase 74 (38-126) IU/L Troponin I (< 0.040) ng/mL NT-Pro-B Natriuret Pep 452 H (0-450) PG/ML Total Protein 5.7 L (6.1-8.0) g/dL Albumin 3.5 (3.5-4.8) g/dL Globulin 2.2 L (2.50-4.10) g/dL Albumin/Globulin Ratio 1.50 (1.3-2.0) mg/g 02/05/17 Range/Units 05:00 WBC (4.8-10.8) 10^3/uL RBC (4.20-5.40) 10^6/uL Hgb (12.0-16.0) g/dL Hct (37.0-47.0) % MCV (81-99) FL MCH (27-31) PG MCHC (33-37) g/dL RDW Std Deviation (39-50) fL RDW Coeff of Maureen (11.5-14.5) % Plt Count (140-350) 10*3/uL MPV (7.4-12.2) FL Immature Gran % (Auto) (0-5) % Neut % (Auto) (50-80) % Lymph % (Auto) (10-50) % Nelson % (Auto) (5-15) % Eos % (Auto) (0-8) % Baso % (Auto) (0-1) % Immature Gran # (Auto) 10*3/UL Neut # (Auto) 10*3/UL Lymph # (Auto) 10*3/uL Nelson # (Auto) (0.3-0.8) 10*3/UL Eos # (Auto) 10*3/UL Baso # (Auto) 10*3/UL WBC Morphology Comment (NORM) Plt Morphology Comment (NORM) RBC Morph Comment (NORM) PT (9.7-11.4) secs INR (0.00-5.90) N/A Sodium 138 (135-145) meq/L Potassium 3.9 (3.8-5.2) meq/L Chloride 106 (98-112) meq/L Carbon Dioxide 24 (23-33) meq/L Anion Gap 8 (5-20) BUN 30 H (7-22) mg/dL Creatinine 1.1 (0.50-1.20) mg/dL Estimated GFR BUN/Creatinine Ratio 27.27 H (6-20) Glucose 122 H (78-110) mg/dL Calculated Osmolality 292.0 (267-292) mOsm/kg Calcium 9.9 (8.7-10.7) mg/dL Magnesium (1.6-2.4) mg/dL Total Bilirubin (0.3-1.2) mg/dL AST (8-39) IU/L ALT (9-52) IU/L Alkaline Phosphatase (38-126) IU/L Troponin I (< 0.040) ng/mL NT-Pro-B Natriuret Pep (0-450) PG/ML Total Protein (6.1-8.0) g/dL Albumin (3.5-4.8) g/dL Globulin (2.50-4.10) g/dL Albumin/Globulin Ratio (1.3-2.0) mg/g Discharge instruction Diet regular Activity as certain Medications Active Medications Acetaminophen (Tylenol) 650 mg PO Q6H PRN PRN Reason: Pain or Fever Calcium Carbonate (Tums) 2 tab PO DAILY [facility] Last Admin: 02/04/17 16:05 Dose: Not Given Docusate Sodium (Colace) 100 mg PO BID [facility] Last Admin: 02/04/17 21:15 Dose: 100 mg Furosemide (Lasix) 40 mg PO EVERY AM [facility] Last Admin: 02/05/17 07:56 Dose: 40 mg Heparin Sodium (Porcine) (Heparin Lock Inj (For Central Line)) 300 - 500 unit IVP BID PRN PRN Reason: Flush Sodium Chloride (Normal Saline 0.9%) 25 mls @ 200 mls/hr IV .Post Infusion PRN PRN Reason: No Primary IV for Flush ONLY Levothyroxine Sodium (Synthroid) 50 mcg PO DAILY@0530 [facility] Last Admin: 02/05/17 06:25 Dose: 50 mcg Lidocaine HCl (Lidocaine Buffered Inj) 0.5 ml SUBD ONCE PRN PRN Reason: IV starts Losartan Potassium (Cozaar) 50 mg PO BID [facility] Last Admin: 02/04/17 21:15 Dose: 50 mg Metoprolol Tartrate (Lopressor Tab) 25 mg PO BID [facility] Last Admin: 02/04/17 21:15 Dose: 25 mg Own Med : Alphagan P (Ophthalmic) 1 LEFT EYE BID [facility] Last Admin: 02/04/17 21:16 Dose: 1 Pantoprazole Sodium (Protonix) 40 mg PO AC BK [facility] Last Admin: 02/05/17 07:56 Dose: 40 mg Potassium Chloride (Klor-Con) 20 meq PO BID MEALS [facility] Last Admin: 02/05/17 07:56 Dose: 20 meq Rosuvastatin Calcium (Crestor) 20 mg PO BEDTIME [facility] Last Admin: 02/04/17 21:16 Dose: 20 mg Sodium Chloride (Saline Flush) 5 - 20 ml IVP BID PRN PRN Reason: Flush Last Admin: 02/01/17 18:47 Dose: 10 ml Tramadol HCl (Ultram) 50 - 100 mg PO Q4H PRN PRN Reason: Pain Last Admin: 02/04/17 22:09 Dose: 50 mg Zolpidem Tartrate (Ambien) 5 mg PO BEDTIME PRN PRN Reason: Insomnia Last Admin: 02/04/17 22:12 Dose: 5 mg Follow-up patient status will be switched to swing bed status. Exam - Vitals Vital Signs: Vital Signs Temperature 97.4 F Temperature Source Temporal Artery Scan Pulse Rate [Pulse Oximeter] 84 Pulse Rate 77 Respiratory Rate 20 Blood Pressure [Right Radial 123/74 Artery] Blood Pressure [Right Arm] 118/73 Blood Pressure [Left Arm] 105/62 Pulse Ox 92 Oxygen Delivery Method Room Air Height 5 ft 2 in Weight 215 lb 11.2 oz
[2017-02-05] MEDS: CALCIUM CARBONATE 500 MG (TUMS) CHEWABLE TABLET PO SCH (08:49)
[2017-02-05] MEDS: Metoprolol TARTRATE Tab 25 MG TAB PO SCH (08:49)
[2017-02-05] MEDS: DOCUSATE 100 MG CAPSULE PO SCH (08:49)
[2017-02-05] MEDS: LOSARTAN 50 MG TABLET PO SCH (08:49)
[2017-02-05] MEDS: ALPHAGAN P LEFT EYE SCH (08:51)
--- NOTE | 2017-02-08 11:09 | OTI REPORT ---
Thank you for the referral of MARTA ESCOBAR. She was seen on 02/03/17 for an occupational therapy inpatient evaluation secondary to weakness and headaches. SUBJECTIVE: The patient is a 76-year-old female who is being seen today secondary to vision changes and headaches as well as multiple medical issues including CHF, weakness , CAD, history of DVT, history of breast cancer, cholesterol, hypertension, hypo -thyroidism, and history of cerebral hemorrhage. The patient reports that the cerebral hemorrhage happened approximately 3-4 weeks ago on the left side of her brain. She said that her vision has been a lot different since the brain bleed. She reports that she has been getting migraine headaches since the age of 15; however, throughout her report, she states she gets most of her migraine headaches while she is having a bowel movement. The patient reports she has had three surgeries on her left eye including removal of cataracts and glaucoma as well as two stints in her eye. She had a surgery on her right eye to remove a cataract; however, since that surgery her vision has been blurrier. The patient does live in [place] with her ; however, he is not home most of the day and she has to do most activities on her own. The patient's headaches do affect her vision. She reports her vision as being "floating" and "sparkly". The patient reports that she has had no falls since 2013. She was in the [facility] for approximately a month secondary to breaking her ankle. The patient does live in a home with one step that goes from the family room to the kitchen. Other than that, it is on one level. Her bathroom is set up with a shower chair in the tub/shower; however, there have been times when she has had difficulty getting out of her shower. She also has a handheld shower hose and a raised toilet seat with handles. Outside of the home, there is a concrete ramp that her had installed. The patient states she usually stays in her house or yard. She has all of the adaptive equipment when needed including a front wheeled walker and a cane. The patient typically does not use dressing equipment to get dressed at home. She reports that her does the laundry, cooking, cleaning, grocery shopping, and she does not do any driving. The patient does receive meals on wheels throughout the week. She does feel that her strength has decreased recently. She states she is not as strong as she was prior to her cerebral hemorrhage. She also reports that her thinking abilities are off. She sometimes cannot find the word that she is trying to say and she just feels like she is processing things slower. PAST MEDICAL HISTORY: Past medical history can be found in the patient's medical record. OBJECTIVE FINDINGS: Range of motion: Today the patient had good active range of motion of her upper extremities. Strength: Strength in shoulder flexion was 4/5, shoulder extension was 4+/5, shoulder abduction was 3+/5, elbow flexion/extension was 4/5, and wrist flexion/ extension was 3+/5. Activities of daily living: The patient had such a migraine headache when the therapist arrived, she did not attempt any dressing tasks at this time; however , per her upper extremity range of motion, she should be able to don a shirt independently after set up. The patient had difficulty bending over secondary to her headache this morning. Today the patient was observed doing a toilet transfer with min assist for sit to stand. She was dependent with toilet hygiene secondary to her migraine headache that she was reporting. She was able to walk to the sink with min assist and complete hand washing with min assist. Bed mobility: The patient was able to transfer from sit to supine with min assist. ASSESSMENT: At this time the patient would benefit from cognitive testing and maybe an aphasia screening secondary to her reports of forgetting words. Problem List: Generalized weakness Decreased ability to perform ADLs Headaches Patient may be doing Valsalva maneuver--this will be discussed further with the doctor Short-Term Goals: To be met by discharge from inpatient: Patient will participate in cognitive screens and assessments to address her cognitive processing abilities. Patient will be able to dress self independently with set up including obtaining clothes from closet independently. Patient will be able to complete a shower as well as a shower transfer independently. Patient will be able to complete aphasia screening with therapist. Patient will be able to complete a tub/shower transfer independently. Patient will be educated in and will be able to address 1-2 things that she can do to assist herself with decreasing headaches. Long-Term Goals: To be met following discharge from inpatient: Patient will return home demonstrating safety and independence with all ADLs and functional tasks. TREATMENT PLAN: Patient will be seen B.I.D during the week and one time per day over the weekend as an inpatient to address the above goals and objectives. INITIAL TREATMENT: Treatment today consisted of the initial evaluation followed by a toilet transfer and hygiene activities. We attempted dressing activities and the patient performed bed mobility and range of motion of upper extremities. SHAREE
--- NOTE | 2017-02-08 11:22 | OT PM DAY ---
Diagnosis : Weakness/Headaches PM - Occupational Therapy S: The therapist performed a [place] Cognitive Assessment (MoCA) with the patient. O: The patient stated that she is having a lot more difficulty thinking and being able to complete activities at home ever since she had the cerebral hemorrhage. Executive function: 08/08 Namin/3 Attention: 08/09 Language: 08/06 Abstraction: 06/07 Delayed Recall: 06/10 Orientation: 10/09 The patient had a total score of 19/30 which puts her in the MILD cognitive impairment range. Her main areas of difficulty are her memory. Since the cerebral infarction the patient reports that she has had increased difficulty with numbers. Prior to her injury and work the patient used to do a lot of bookkeeping, dealing with numbers, and organization. She states that this is becoming increasingly worse and she would like to further address this. A: We will continue with some more aphasia activities and the cognitive performance test on Tuesday. P: Continue seeing patient BID during the week and one time per day over the weekend until discharge. SHAREE
--- NOTE | 2017-02-08 11:48 | OT AM DAY ---
Diagnosis : Weakness/Headaches AM - Occupational Therapy S: The patient had reported yesterday that she is having difficulty retrieving words. O: Today we had the patient go through the aphasia screening test. Namin/10 Automatic speech: 03/15 Repetition: 03/15 Yes and No Responses: 20 Object Recognition: 03/15 Following Instructions: 03/15 Reading Instructions: 03/15 Verbal Fluency: 03/15 Writing/Spellin/10 -- This may have been slightly skewed due to the patient' s decreased ability to hear the words. Overall the patient scored 96/100. At this point in time there are no concerns with her ability to recognize speech. The areas that may be slightly skewed are her decreased vision and decreased hearing abilities. The therapist also worked on lower extremity dressing skills with the patient. The patient scooted herself forward in the chair. She was able to bring legs over knee today. She states sometimes this is more difficult but she was able to doff and don socks bilaterally. A: The patient has made improvements with her lower extremity mobility and ADLs. At this point aphasia is not a concern secondary to the patient's intracranial hemorrhage. We are going to further assess her cognitive processing abilities based on her MoCA screen this afternoon with the Cognitive Performance Test. P: Continue seeing patient BID during the week and one time per day over the weekend for transfers, ambulation, and range of motion/strengthening exercises.[] RAULD
--- NOTE | 2017-02-08 11:59 | OT PM DAY ---
Diagnosis : Weakness/Headaches PM - Occupational Therapy S: The patient states she does not hear well or see well. The patient lives with her . The patient states she does have children that live around town but they work all day. O: The patient was seen in therapy after PT transferred her downstairs via wheelchair. She completed upper body ergometer x8 minutes to increase her activity tolerance. She then transferred to the mat table where she completed upper extremity activities including balloon toss with left and right upper extremity. The patient displayed good trunk flexibility, motion, and strength as well as good range of motion in her left and right upper extremities to complete this activity. The patient transferred to the back room where there was more privacy and we began the Cognitive Performance Test. Med box: The patient scored 3.5. The patient read the instructions well as she did not need her glasses at this point. She read each instruction on the bottles correctly but was unable to complete any of the tasks correctly. The patient was very frustrated after this first task. Shopping: The patient scored 3.5. We attempted to complete the shopping task. The patient started by looking at the gloves first. She tried a pair on. She did look for the melgoza and then she looked in the wallet for money. At this point the patient dropped the money all over the floor. The patient was very frantic and confused at this time and she could not come up with the correct amount. The patient became very frustrated and quit the activity and did not want to go on. At this point, due to the patient's frustration, it was beneficial to terminate the CPT and return the patient to her room. Once in room, the patient was left upright in her chair with call light within reach and chair alarm on. A: The patient could not complete any of the med box activities. She was very confused. The therapist does not believe this was due to vision as she could read the directions properly. The patient could not complete any of the shopping task either; she was very confused. The patient was not very safe during any transfers today and she seemed to be unaware of any safety issues. P: Continue seeing patient BID during the week and one time per day over the weekend until discharge. We may want to continue to focus on the patient's safety awareness and overall activity tolerance. SHAREE
--- NOTE | 2017-02-08 14:15 | PT PM DAY ---
Diagnosis : Weakness/Headaches PM - Physical Therapy S: The patient states that she is doing okay. She states that she got up earlier to go to the bathroom because she really had to go; however, nobody was coming and she couldn't find the call button. O: The patient performed functional activities including the patient ambulating from her room to the elevators, approximately 60 feet. The patient was then transferred to the outpatient clinic where she performed long arc quads , seated marches, resisted hamstring curls, ankle pumps, and sit to stand transfers x5. The patient was left with OT for upper extremity strengthening and CPT. A: The patient did very well with all activities today. She was able to ambulate with use of standard walker and was independent with bed mobility. The patient does demonstrate some decreased balance. The patient was able to toilet and perform toilet hygiene independently. P: Continue seeing patient BID during the week and one time per day over the weekend for transfers, ambulation, and range of motion/strengthening exercises. SHAREE
== END 2017-02-05 10:07 | disposition swing bed (61) | DRG 293 ==
LOC: MED/SURG 16:59
PROVIDERS: ADMIT Family Medicine; ATTEND Family Medicine